=== PATIENT | male | born 1955 | race Caucasian/White ===

== ENCOUNTER 2017-07-23 17:25 | Inpatient (IN) | payer OTHER ==
[~2017-07-23] VITALS: Ht 170.2 cm; Wt 90.7 kg
--- NOTE | 2017-07-23 17:39 | ED GI/GU/ABDOMINAL COMPLAINT ---
History of Present Illness General Chief Complaint: Abdominal Pain/Flank Pain Stated Complaint: LOWER ABD PAIN, X 4 DAYS Source: patient Exam Limitations: no limitations Vital Signs & Intake/Output Vital Signs & Intake/Output Vital Signs Date Time Temp Pulse Resp B/P B/P Pulse O2 O2 Flow FiO2 Mean Ox Delivery Rate 07/23 1916 99.5 77 16 149/69 95 Room Air 07/23 1810 98 Room Air 07/23 1729 99.9 88 18 164/91 97 Room Air Room Air Allergies Coded Allergies: NO KNOWN ALLERGIES (09/17/10) Triage Note: TRIAGE: 62 Y/O FEMALE PRESENTS C/O 12/14 LLQ ABD PAIN SINCE TUESDAY. REPORTS PAIN INTENSE, PREFERS NOT TO SIT IN TRIAGE BENDING EXACERBATES PAIN. TEMP 99.9 IN TRIAGE. Triage Nurses Notes Reviewed? yes Duration: constant Timing: recent history Quality/Severity: sharpness, severe, stabbing Severity Numbers: 7 Radiation: no radiation HPI: Patient is a 62-year-old male with a past medical history of hypertension hyperlipidemia and aortic valve replacement who presents emergency room with concerns of a four-day history of gradually worsening localized left lower quadrant abdominal pain. Patient denies any mechanism injury denies any trauma denies any testicular pain or swelling denies any back pain, change in symptoms upon eating and drinking. Denies any nausea vomiting fever chills chest pain arm pain jaw pain. Last bowel movement was last 24 hours no blood no melena. (Rivas Tony) Reconcile Medications Amlodipine Besylate (Norvasc) 10 MG TABLET 1 TAB PO DAILY HTN (Reported) Aspirin (Aspirin*) 325 MG TABLET 1 TAB PO DAILY HEARTHEALTH (Reported) Diazepam (Valium) 5 MG TABLET 1 TAB PO QPMP PRN VERTIGO (Reported) Evolocumab (Repatha Sureclick) 140 MG/ML PEN.INJCTR 1 DOSE INJ Q 2 WEEKS . ( Reported) Valsartan (Diovan) 320 MG TABLET 1 TAB PO DAILY HTN (Reported) (Rivas Duran) Past History Travel History Traveled to [place] past 21 day No Medical History Any Pertinent Medical History? see below for history Neurological: NONE EENT: NONE Cardiovascular: hypertension, hyperlipidemia, AORTIC VALVE REPLACE 2013 R CORONARY ARTERY STENT Surgical History Surgical History: non-contributory Psychosocial History What is your primary language Czech Tobacco Use: Never used ETOH Use: occasional use Illicit Drug Use: denies illicit drug use Family History Hx Contributory? No (Rivas Tony) Review of Systems Review of Systems Constitutional: Reports: no symptoms. EENTM: Reports: no symptoms. Respiratory: Reports: no symptoms. Cardiovascular: Reports: no symptoms. GI: Reports: see HPI, abdominal pain. Genitourinary: Reports: no symptoms. Musculoskeletal: Reports: no symptoms. Skin: Reports: no symptoms. Neurological/Psychological: Reports: no symptoms. Hematologic/Endocrine: Reports: no symptoms. Immunologic/Allergic: Reports: no symptoms. All Other Systems: Reviewed and Negative (Rivas Tony) Physical Exam Physical Exam General Appearance: mild distress Head: atraumatic Eyes: Bilateral: normal appearance. Ears, Nose, Throat, Mouth: moist mucous membrane Neck: normal inspection Respiratory: no respiratory distress Cardiovascular: regular rate/rhythm Gastrointestinal: normal bowel sounds, soft, LLQ PAIN, NO REBOUND TENDERNESS Neurologic/Psych: no motor/sensory deficits, awake Skin: intact, normal color Core Measures ACS in differential dx? No Sepsis Present: No Sepsis Focused Exam Completed? No (Rivas Tony) Progress Differential Diagnosis: AAA, AMI, appendicitis, biliary colic, bowel obstruction , colon cancer, cholecystitis, diverticulitis, epididymitis, esophageal varices, gastritis, hepatitis, hernia, hemorrhoids, ischemic bowel, inflamm bowel dis, orchitis, pancreatitis, prostatitis, peptic ulcer, PUD/GERD, perforated viscous, pyelonephritis, SBO, testicular torsion, ureterolithiasis, urinary retention, urethritis, UTI/pyelo Plan of Care: Orders Procedure Date/time Status Nothing by Mouth 07/24 B Active CBC WITHOUT DIFFERENTIAL 07/24 0600 Active BASIC ELECTROLYTES PLUS BUN&CR 07/24 06 Active Pathway - chart 07/23 2125 Active Patient Data 07/23 2125 Active Code Status 07/23 2125 Active Misc Message 07/23 2112 Active ED Holding Orders 07/23 2112 Active Admit to inpatient 07/23 2112 Active Vital Signs 07/23 2112 Active Code Status 07/23 2112 Complete BLOOD CULTURE 07/24 2015 Active URINALYSIS 07/23 1745 Complete LACTIC ACID 07/23 1745 Complete COMPREHENSIVE METABOLIC PANEL 07/23 1745 Complete CBC WITHOUT DIFFERENTIAL 07/23 1745 Complete VTE Mechanical Prophylaxis 07/23 UNK Active Vital Signs 07/23 UNK Active Intake & Output 07/23 UNK Active Activity/Ambulation 07/23 UNK Active Current Medications Sig/Cecilia Start time Last Medication Dose Stop Time Status Admin Docusate Sodium 100 MG DAILY 07/24 0900 UNVr (Colace) Ampicillin Sodium/ 3,000 MG Q6 07/23 2359 UNVr Sulbactam Sodium (Unasyn) Sodium Chloride 100 ML (Normal Saline 0.9%) Heparin Sodium 5,000 UNIT Q8 07/23 220 UNVr (Porcine) Acetaminophen 1,000 MG Q6P PRN 07/23 2129 UNVr (Ofirmev) N/A 1 UNIT (No Carrier) Dextrose/Sodium 1,000 ML .Q10H 07/23 2129 UNVr Chloride (D5W-1/2 Normal Saline 1000ML) Morphine Sulfate 2 MG Q3P PRN 07/23 2129 UNVr (Morphine) Morphine Sulfate 4 MG Q3P PRN 07/23 2129 UNVr (Morphine) Ondansetron HCl 4 MG Q8P PRN 07/23 2129 UNVr (Zofran) Laboratory Tests 07/23/172044: Lactic Acid Cancelled 07/23/17 1904: Urine Color YEL, Urine Clarity HAZY H, Urine pH 6.0, Ur Specific [place] 1.020, Urine Protein NEG, Urine Ketones NEG, Urine Nitrite NEG, Urine Bilirubin NEG, Urine Urobilinogen 0.2, Ur Leukocyte Esterase NEG, Ur Microscopic SEDIMENT EXAMINED, Urine RBC 1-3, Urine WBC RARE, Urine Bacteria FEW H, Urine Mucus RARE , Urine Hemoglobin SMALL H, Urine Glucose NEG 07/23/17 1800: Anion Gap 12, Estimated GFR > 60, BUN/Creatinine Ratio 18.9, Glucose 99, Lactic Acid 0.7, Calcium 9.2, Total Bilirubin 0.7, AST 21, ALT 32, Alkaline Phosphatase 77, Total Protein 6.7, Albumin 4.3, Globulin 2.4, Albumin/Globulin Ratio 1.8, CBC w Diff NO MAN DIFF REQ, RBC 5.21, MCV 88.1, MCH 29.8, MCHC 33.8, RDW 14.5, MPV 7.8, Gran % 83.0 H, Lymphocytes % 8.7 L, Monocytes % 6.0, Eosinophils % 1.9, Basophils % 0.4, Absolute Granulocytes 9.7 H, Absolute Lymphocytes 1.0 L, Absolute Monocytes 0.7 H, Absolute Eosinophils 0.2, Absolute Basophils 0 Microbiology 07/23 2049 BLOOD: Blood Culture - RECD 07/24 2039 BLOOD: Blood Culture - RECD Upon initial examination patient was in mild distress patient was given 6 mg of morphine which temporally improved his pain pain then recurred for more milligrams of morphine was GIVEN 1922 patient currently resting comfortably CT SCAN PENDING, DISCUSSED HANDOFF WITH RIVAS WANG PA-C 1944 (Rivas Tony) I discussed with the patient is CAT scan findings, call placed to surgery.Dr. Blankenship in to evaluate patient 2049-Case d/w dr yanes will have surgical paeval pt per michael surgical natalie,clemencia will be admitted to surgical service (Rivas Duran) Initial ED EKG: none Hand-Off Endorsed To: Rivas Duran Endorsed Time: 1944 Pending: CT (Rivas Tony) Diagnostic Imaging: Viewed by Me: CT Scan. Discussed w/RAD: CT Scan. Radiology Impression: PATIENT: CLEMENCIA CLIFFORD PRESENT AGE: 62 PATIENT ACCOUNT NO: [id number] : 55 LOCATION: [facility] ORDERING PHYSICIAN: Rivas CASTANO SERVICE DATE: 07/23/17 EXAM TYPE: CAT - CT ABD & PELVIS W IV CONTRAST EXAMINATION: CT ABDOMEN AND PELVIS WITH CONTRAST CLINICAL INFORMATION: Left lower quadrant pain COMPARISON: CT 10/19/2013 TECHNIQUE: Multidetector volumetric imaging was performed of the abdomen and pelvis following IV administration of 100 mL of Omnipaque 300 intravenous contrast. Sagittal and coronal reformatted images were obtained on the technologist's workstation. DLP: 536 mGy-cm FINDINGS: LUNG BASES: The visualized lung bases are unremarkable. LIVER, GALLBLADDER, AND BILIARY TREE: The liver is normal in size, shape, and attenuation. No focal hepatic lesion or biliary ductal dilatation is present. There is mildly distended. However, there is no wall edema or pericholecystic fluid. PANCREAS: Unremarkable. SPLEEN: Unremarkable. ADRENAL GLANDS: Unremarkable. KIDNEYS AND URETERS: The kidneys are normal in size, shape, and attenuation. No hydronephrosis, hydroureter, or calculi seen. No perinephric stranding. BLADDER: Unremarkable. GASTROINTESTINAL TRACT: There is a large segment of abnormal distal descending and sigmoid: With multiple diverticula and extensive associated inflammatory change. There is an air collection immediately lateral to the distal descending colon measuring 1.4 x 1.3 cm (image 76, series 2). This area is surrounded by dense inflammatory change. There is marked thickening of the lateral conal fascia. There is small amount of free fluid surrounding this long segment of colon as well. The involved segment of colon measures approximately 9 cm in length. Abnormal fluid and inflammatory change tract into the left inguinal canal as well (image 91, series 2) in addition to tracking inferiorly deep within the pelvis. The remainder of the small and large bowel is unremarkable. Normal appendix is visualized in the right lower quadrant. ABDOMINAL WALL: Small right sided fat- containing inguinal hernia. Left inguinal canal inflammatory changes as delineated above. LYMPH NODES: Normal. VASCULAR: Unremarkable. PELVIC VISCERA: Prostate seminal vesicles are unremarkable. OSSEOUS STRUCTURES: Unremarkable. IMPRESSION: Complicated acute sigmoid diverticulitis with contained small abscess and associated free fluid in addition to extensive inflammatory changes in the left lower quadrant. The presumed abscess is not percutaneously drainable based on size criteria (less than 2 cm). Surgical consultation is recommended. DICTATED BY: Madhuri Zacarias MD DATE/TIME DICTATED:07/23/171951 OPERATIONS CLERK :JAKI DATE/TIME TRANSCRIBED:07/23/171951 CONFIDENTIAL, DO NOT COPY WITHOUT APPROPRIATE AUTHORIZATION. <Electronically signed in Other Vendor System> SIGNED BY: Madhuri Zacarias MD 07/23/172002 (Rivas Duran) Comments: 07/23/2017 8:35:00 PM I have updated Clemencia on his test results and he offers no specific complaint at this time. (Pattie MCMANUS,Elia Rogers) Departure Departure Disposition: STILL A PATIENT Condition: Stable Referrals: Cathi Moreland DO (PCP/Family) Departure Forms: Customer Survey General Discharge Information (Rivas Tony) Departure Time of Disposition: 2111 Clinical Impression Primary Impression: Diverticulitis of intestine with abscess Secondary Impressions: Abdominal pain Admission Note Spoke With: Earl MCMANUS,Tamir Gamboa Documentation of Exam: Documentation of any treatments & extenuating circumstances including Concerns Regarding Discharge (functional status, medication knowledge or non-compliance, living conditions, etc.) that warrant an admission rather than observation: [iv abx, trend labsand cultures, premature discharge would be medically harmful, may require IR drainage vs surgery. (Slime CASTANORivas) PA/FINANCIAL SALES CONSULTANT Co-Sign Statement Statement: ED Attending supervision documentation- [x] I saw and evaluated the patient. I have also reviewed all the pertinent lab results and diagnostic results. I agree with the findings and the plan of care as documented in the PA's/FINANCIAL SALES CONSULTANT's documentation. Patient presents for evaluation of lower abdominal pain. Physical examination reveals tenderness in the left lower quadrant with brief voluntary guarding. [] I have reviewed the ED Record and agree with the PA's/FINANCIAL SALES CONSULTANT's documentation. [] Additions or exceptions (if any) to the PAs/FINANCIAL SALES CONSULTANT's note and plan are summarized below: [] (Pattie MCMANUS,Elia Rogers)
[2017-07-23 18:11] LABS: ABSOLUTE BASOPHIL COUNT 0 /CUMM (0.0-0.2); ABSOLUTE EOSINOPHIL COUNT 0.2 /CUMM (0.0-0.7); ABSOLUTE GRANULOCYTE CT 9.7 /CUMM (1.4-6.5); ABSOLUTE MONOCYTE COUNT 0.7 /CUMM (0.10-0.60); BASOPHIL % 0.4 % (0.0-2.0); EOSINOPHIL % 1.9 % (0-5); HEMATOCRIT 45.9 % (42-52); MEAN CORPUSCULAR HGB 29.8 PG (27.0-31.0); MEAN CORPUSCULAR HGB CONC 33.8 G/DL (33.0-37.0); MEAN CORPUSCULAR VOLUME 88.1 FL (80.0-94.0); MEAN PLATELET VOLUME 7.8 FL (7.4-10.4); PLATELET COUNT 245 /CUMM (130-400); RBC DISTRIBUTION WIDTH 14.5 % (11.5-14.5); RED BLOOD CELL CT 5.21 /CUMM (4.70-6.10); WHITE BLOOD CELL COUNT 11.7 /CUMM (4.8-10.8)
--- NOTE | 2017-07-23 20:03 | CT SCAN REPORT ---
EXAMINATION: CT ABDOMEN AND PELVIS WITH CONTRAST CLINICAL INFORMATION: Left lower quadrant pain COMPARISON: CT 10/19/2013 TECHNIQUE: Multidetector volumetric imaging was performed of the abdomen and pelvis following IV administration of 100 mL of Omnipaque 300 intravenous contrast. Sagittal and coronal reformatted images were obtained on the technologist's workstation. DLP: 536 mGy-cm FINDINGS: LUNG BASES: The visualized lung bases are unremarkable. LIVER, GALLBLADDER, AND BILIARY TREE: The liver is normal in size, shape, and attenuation. No focal hepatic lesion or biliary ductal dilatation is present. There is mildly distended. However, there is no wall edema or pericholecystic fluid. PANCREAS: Unremarkable. SPLEEN: Unremarkable. ADRENAL GLANDS: Unremarkable. KIDNEYS AND URETERS: The kidneys are normal in size, shape, and attenuation. No hydronephrosis, hydroureter, or calculi seen. No perinephric stranding. BLADDER: Unremarkable. GASTROINTESTINAL TRACT: There is a large segment of abnormal distal descending and sigmoid: With multiple diverticula and extensive associated inflammatory change. There is an air collection immediately lateral to the distal descending colon measuring 1.4 x 1.3 cm (image 76, series 2). This area is surrounded by dense inflammatory change. There is marked thickening of the lateral conal fascia. There is small amount of free fluid surrounding this long segment of colon as well. The involved segment of colon measures approximately 9 cm in length. Abnormal fluid and inflammatory change tract into the left inguinal canal as well (image 91, series 2) in addition to tracking inferiorly deep within the pelvis. The remainder of the small and large bowel is unremarkable. Normal appendix is visualized in the right lower quadrant. ABDOMINAL WALL: Small right sided fat-containing inguinal hernia. Left inguinal canal inflammatory changes as delineated above. LYMPH NODES: Normal. VASCULAR: Unremarkable. PELVIC VISCERA: Prostate seminal vesicles are unremarkable. OSSEOUS STRUCTURES: Unremarkable. IMPRESSION: Complicated acute sigmoid diverticulitis with contained small abscess and associated free fluid in addition to extensive inflammatory changes in the left lower quadrant. The presumed abscess is not percutaneously drainable based on size criteria (less than 2 cm). Surgical consultation is recommended.
[2017-07-23] MEDS ORDERED: NORVASC10 M1 PO (20:35)
[2017-07-23] MEDS ORDERED: DIOVAN320 M1 PO (20:35)
[2017-07-23] MEDS ORDERED: ASPIRIN325 M2 PO (20:35)
[2017-07-23] MEDS ORDERED: REPATHA SU140 MG/1 M INJ (20:36)
[2017-07-23] MEDS ORDERED: VALIUM5 M2 PO (20:36)
--- NOTE | 2017-07-23 21:41 | History & Physical Pre-Op ---
AlisKathrin 07/23/172129: General Information and HPI MD Statement: I have seen and personally examined CLEMENCIA CLIFFORD and documented this H&P. Source of Information: patient, family Exam Limitations: no limitations History of Present Illness: The patient is a 62 year old M who presented with a patient stated chief complaint of []left lower quadrant abdominal pain that started 3 days ago. Patient states he thought he pulled a muscle while working outside. He had vague abdominal pain that worsened over the last few days. Today the discomfort worsened along with anorexia. He denies nausea or vomiting. He ate a full lunch without incident. Small BM earlier today that was normal appearing without blood. Allergies/Medications Allergies: Coded Allergies: NO KNOWN ALLERGIES (09/17/10) Home Med list Amlodipine Besylate (Norvasc) 10 MG TABLET 1 TAB PO DAILY HTN (Reported) Aspirin (Aspirin*) 325 MG TABLET 1 TAB PO DAILY HEARTHEALTH (Reported) Diazepam (Valium) 5 MG TABLET 1 TAB PO QPMP PRN VERTIGO (Reported) Evolocumab (Repatha Sureclick) 140 MG/ML PEN.INJCTR 1 DOSE INJ Q 2 WEEKS . ( Reported) Valsartan (Diovan) 320 MG TABLET 1 TAB PO DAILY HTN (Reported) Compliance With Home Meds: GOOD Past History Medical History Neurological: NONE EENT: NONE Cardiovascular: hypertension, hyperlipidemia, AORTIC VALVE REPLACE 2012 R CORONARY ARTERY STENT, cardiac stent Surgical History Pertinent Surgical History: non-contributory Past Family/Social History Psychosocial History ETOH Use: occasional use Illicit Drug Use: denies illicit drug use Review of Systems Review of Systems Constitutional: Denies: chills, fever, malaise, weakness. EENTM: Denies: no symptoms. Cardiovascular: Denies: chest pain, edema, palpitations. Respiratory: Denies: cough, short of breath. GI: Reports: abdominal pain, bloating. Denies: constipation, diarrhea, melena, nausea, bloody stool, vomiting. Genitourinary: Denies: no symptoms. Musculoskeletal: Denies: no symptoms. Skin: Denies: no symptoms. Neurological/Psychological: Reports: other (vertigo). Hematologic/Endocrine: Denies: no symptoms. Exam & Diagnostic Data Last 24 Hrs of Vital Signs/I&O Vital Signs Date Time Temp Pulse Resp B/P B/P Pulse O2 O2 Flow FiO2 Mean Ox Delivery Rate 07/23 1916 99.5 77 16 149/69 95 Room Air 07/23 1810 98 Room Air 07/23 1729 99.9 88 18 164/91 97 Room Air Room Air Physical Exam: Patient is alert and oriented lying on stetcher. is present. appears comfortable HEENT -WNL Neck - Supple, NT AROM Chest- CTA symmetric heart -RRR without MRG Abdomen - rounded with mild distention TTP LLQ with guarding, pos BS bilateral lower extremities without edema and calves soft CT scan of abdomen impression Complicated acute sigmoid diverticulitis with contained small abscess and associated free fluid in addition to extensive inflammatory changes in the left lower quadrant. The presumed abscess is not percutaneously drainable based on size criteria (less than 2 cm). Surgical consultation is recommended. Admission Lab Results I reviewed the following labs: Laboratory Tests 07/23 Chemistry Lactic Acid Cancelled Urines Urine Color (YEL,AMB,STR) YEL Urine Clarity (CLEAR) HAZY H Urine pH (5.0 - 8.0) 6.0 Ur Specific [place] (1.001 - 1.035) 1.020 Urine Protein (NEG,<30 MG/DL) NEG Urine Ketones (NEG) NEG Urine Nitrite (NEG) NEG Urine Bilirubin (NEG) NEG Urine Urobilinogen (0.1 - 1.0 EU/dl) 0.2 Ur Leukocyte Esterase (NEG) NEG Ur Microscopic SEDIMENT EXAMINED Urine RBC (0 - 5 /HPF) 1-3 Urine WBC (0 - 2 /HPF) RARE Urine Bacteria (NEG/NONE) FEW H Urine Mucus (FEW,NONE) RARE Urine Hemoglobin (NEG) SMALL H Urine Glucose (N MG/DL) NEG 07/23 1800 Chemistry Sodium (137 - 145 mmol/L) 141 Potassium (3.5 - 5.1 mmol/L) 4.0 Chloride (98 - 107 mmol/L) 104 Carbon Dioxide (22 - 30 mmol/L) 25 Anion Gap (5 - 16) 12 BUN (9 - 20 mg/dL) 17 Creatinine (0.7 - 1.2 mg/dL) 0.9 Estimated GFR (>60 ml/min) > 60 BUN/Creatinine Ratio (7 - 25 %) 18.9 Glucose (65 - 99 mg/dL) 99 Lactic Acid (0.7 - 2.1 mmol/L) 0.7 Calcium (8.4 - 10.2 mg/dL) 9.2 Total Bilirubin (0.2 - 1.3 mg/dL) 0.7 AST (17 - 59 U/L) 21 ALT (21 - 72 U/L) 32 Alkaline Phosphatase (< 127 U/L) 77 Total Protein (6.3 - 8.2 g/dL) 6.7 Albumin (3.5 - 5.0 g/dL) 4.3 Globulin (1.9 - 4.2 gm/dL) 2.4 Albumin/Globulin Ratio (1.1 - 2.2 %) 1.8 Hematology CBC w Diff NO MAN DIFF REQ WBC (4.8 - 10.8 /CUMM) 11.7 H RBC (4.70 - 6.10 /CUMM) 5.21 Hgb (14.0 - 18.0 G/DL) 15.5 Hct (42 - 52 %) 45.9 MCV (80.0 - 94.0 FL) 88.1 MCH (27.0 - 31.0 PG) 29.8 MCHC (33.0 - 37.0 G/DL) 33.8 RDW (11.5 - 14.5 %) 14.5 Plt Count (130 - 400 /CUMM) 245 MPV (7.4 - 10.4 FL) 7.8 Gran % (42.2 - 75.2 %) 83.0 H Lymphocytes % (20.5 - 51.1 %) 8.7 L Monocytes % (1.7 - 9.3 %) 6.0 Eosinophils % (0 - 5 %) 1.9 Basophils % (0.0 - 2.0 %) 0.4 Absolute Granulocytes (1.4 - 6.5 /CUMM) 9.7 H Absolute Lymphocytes (1.2 - 3.4 /CUMM) 1.0 L Absolute Monocytes (0.10 - 0.60 /CUMM) 0.7 H Absolute Eosinophils (0.0 - 0.7 /CUMM) 0.2 Absolute Basophils (0.0 - 0.2 /CUMM) 0 Admission Meds I reviewed the following Meds: Current Medications Sig/Cecilia Start time Last Medication Dose Stop Time Status Admin Acetaminophen 1,000 MG Q6P PRN 07/230 UNVr (Ofirmev) N/A 1 UNIT (No Carrier) Ampicillin Sodium/ 3,000 MG Q6 07/23 2359 UNVr Sulbactam Sodium (Unasyn) Sodium Chloride 100 ML (Normal Saline 0.9%) Dextrose/Sodium 1,000 ML .Q10H 07/23 2130 UNVr Chloride (D5W-1/2 Normal Saline 1000ML) Docusate Sodium 100 MG DAILY 07/24 0900 UNVr (Colace) Heparin Sodium 5,000 UNIT Q8 07/23 2200 UNVr (Porcine) Morphine Sulfate 2 MG Q3P PRN 07/23 2129 UNVr (Morphine) Morphine Sulfate 4 MG Q3P PRN 07/23 2129 UNVr (Morphine) Ondansetron HCl 4 MG Q8P PRN 07/23 2129 UNVr (Zofran) Assessment/Plan Assessment/Plan: acute sigmoid diverticulitis Admit to Dr. Elliott for bowel rest and IV unasyn. He will be NPO and reascessed in the AM. HSQ for DVT prophalaxis and ALPS OOB to stretcher chair As Ranked By This Provider Problem List: 1. Diverticulitis of intestine with abscess Tamir Elliott MD 07/24/17 1040: Attending MD Review Statement Attending Statement Attending MD Statement: discuss w/resident/PA/PATIENT CARE, reviewed images Attending Assessment/Plan: PATIENT PRESENTS WITH WAS PRESUMED TO BE A MUSCULOSKELETAL INJURY WITH LEFT LLQ/ INGUINAL PAIN. WORSENED REQUIRING EVALUATION IN ER. PATIENT HAS FOCAL LLQ PERITONITIS. CT SHOWS INFLAMMATORY CHANGES TO SIGMOID COLON C/W DIVERTICULITIS. PATIENT HAS PRIOR COLONOSCOPY WITHOUT SIGNIFICANT FINDINGS 2 YEARS AGO. PLAN FOR BOWEL REST AND IV BROAD SPECTRUM ABX. SERIAL ABDOMINAL EXAMINATION. IMAGES VIEWED. "SMALL ABSCESS" IS OF NO CONSEQUENCE. TOO SMALL TO CHARACTERIZE AND TOO SMALL FOR PERCUTANEOUS DRAINAGE. IT WILL BE MANAGED WITHOUT INTERVENTION.
--- NOTE | 2017-07-23 21:53 | Patient Discharge Instructions ---
Discharge Instructions General Discharge Information You were seen/treated for: Diverticulitis with abscess You had these procedures: None Watch for these problems: Increased pain, nausea, vomiting, fever > 101.3, chills Special Instructions: Please complete 7 day course of Augmentin. Take with food. Diet Continue normal diet: No Recommended Diet: Low Residue Activity Full Activity/No Limits: Yes Acute Coronary Syndrome Inclusion Criteria At DC or during hospital stay patient has or had the following: ACS DIAGNOSIS No Discharge Core Measures Meds if any: Prescribed or Continued at Discharge Meds if any: NOT Prescribed or Continued at Discharge Congestive Heart Failure Inclusion Criteria At DC or during hospital stay patient has or had the following: CHF DIAGNOSIS No Discharge Core Measures Meds if any: Prescribed or Continued at Discharge Meds if any: NOT Prescribed or Continued at Discharge Cerebrovascular accident Inclusion Criteria At DC or during hospital stay patient has or had the following: CVA/TIA Diagnosis No Discharge Core Measures Meds if any: Prescribed or Continued at Discharge Meds if any: NOT Prescribed or Continued at Discharge Venous thromboembolism Inclusion Criteria VTE Diagnosis No VTE Type NONE VTE Confirmed by (Test) NONE Discharge Core Measures - Per Current guidelines, there needs to be overlap - treatment for the first 5 days of Warfarin therapy. - If discharged on Warfarin prior to 5 days of - overlap therapy, the patient will need to be - assessed for post discharge needs including - *Post discharge parental anticoagulation - *Warfarin and/or parental anticoagulation education - *Follow up date to check INR post discharge At least 5 days overlap therapy as Inpatient No Meds if any: Prescribed or Continued at Discharge Note: Overlap Therapy is Warfarin and Anticoagulant Meds if any: NOT Prescribed or Continued at Discharge
[2017-07-23 22:43] VITALS: BP 120/68
[2017-07-24 06:57] VITALS: BP 114/71
--- NOTE | 2017-07-24 08:28 | PN- General Surgery ---
See Addendum Subjective Subjective: PT IN BED, STILL WITH MOD LOWER LEFT ABDOMINAL PAIN. DENIES FEVERS. NO NAUSEA, CURRENTLY NPO. PASSING FLATUS, NO BM. DENIES DYSUREA. Objective Vital Signs and I&Os Vital Signs Date Time Temp Pulse Resp B/P B/P Pulse O2 O2 Flow FiO2 Mean Ox Delivery Rate 07/24 0744 66 112/70 07/24 0743 66 112/70 07/24 0657 97.9 66 18 114/71 94 Room Air 07/23 2243 98.6 69 18 120/68 94 Room Air 07/23 2152 98.9 72 20 129/69 93 Room Air 07/23 1917 99.5 77 16 149/69 95 Room Air 07/23 1810 98 Room Air 07/23 1729 99.9 88 18 164/91 97 Room Air Room Air Intake & Output 07/24 1600 07/24 0800 07/24 0000 07/23 1600 07/23 0800 07/23 0000 Intake Total 1000 Output Total 450 300 Balance 550 -300 Intake, IV 1000 Output, Urine 450 300 Patient 200 lb Weight Weight Reported by Patient Measurement Method Physical Exam: GEN- NAD RESP- CLEAR CARDIAC- RRR ABD- SOFT, +BS, TENDER IN LLQ, NO REBOUND OR GAURDING EXT- WARM AND DRY, NO EDEMA, NO CALF TENDERNESS Current Medications: Current Medications Sig/Cecilia Start time Last Medication Dose Route Stop Time Status Admin Acetaminophen 1,000 MG Q6P PRN 07/23 2129 AC N/A 1 UNIT IV Amlodipine Besylate 10 MG DAILY 07/24 0900 AC 07/24 PO 0743 Ampicillin Sodium/ 3,000 MG Q6 07/23 2359 AC 07/24 Sulbactam Sodium IV 0501 Sodium Chloride 100 ML Ampicillin Sodium/ 0 .STK-MED ONE 07/23 2046 DC Sulbactam Sodium .ROUTE Ampicillin Sodium/ 3,000 MG ONCE ONE 07/23 2029 DC 07/23 Sulbactam Sodium IV 07/23 Sodium Chloride 100 ML Dextrose/Sodium 1,000 ML .Q10H 07/23 2129 AC 07/23 Chloride IV 2151 Diazepam 5 MG QPM PRN 07/23 2199 AC PO Docusate Sodium 100 MG DAILY 07/24 0900 AC 07/24 PO 0744 Heparin Sodium 5,000 UNIT Q8 05/19 2200 AC (Porcine) SC Ketorolac 0 .STK-MED ONE 07/23 2045 DC Tromethamine .ROUTE Ketorolac 30 MG ONCE ONE 07/23 2030 DC 07/23 Tromethamine IV 07/23 Losartan Potassium 100 MG DAILY 07/24 0900 AC 07/24 PO 0744 Morphine Sulfate 2 MG Q3P PRN 07/230 AC 07/24 IV 0744 Morphine Sulfate 4 MG Q3P PRN 07/23 2129 AC IV Morphine Sulfate 0 .STK-MED ONE 07/23 2046 DC .ROUTE Morphine Sulfate 2 MG ONCE ONE 07/23 2030 DC 07/23 IV 07/23 Morphine Sulfate 4 MG ONCE ONE 07/23 191 DC 07/23 IV 07/23 Morphine Sulfate 0 .STK-MED ONE 07/23 1910 DC .ROUTE Morphine Sulfate 0 .STK-MED ONE 07/23 1758 DC .ROUTE Morphine Sulfate 6 MG ONCE ONE 07/23 1745 DC 07/23 IV 07/23 174 1800 Ondansetron HCl 4 MG Q8P PRN 07/23 2129 AC 07/24 IV 0306 Results Last 48 Hours of Labs: Laboratory Tests 07/24 07/23 07/23 0637 2045 1904 Chemistry Sodium Pending Potassium Pending Chloride Pending Carbon Dioxide Pending Anion Gap Pending BUN Pending Creatinine Pending BUN/Creatinine Ratio Pending Lactic Acid Cancelled Hematology CBC w Diff Pending WBC Pending RBC Pending Hgb Pending Hct Pending MCV Pending MCH Pending MCHC Pending RDW Pending Plt Count Pending MPV Pending Urines Urine Color (YEL,AMB,STR) YEL Urine Clarity (CLEAR) HAZY H Urine pH (5.0 - 8.0) 6.0 Ur Specific [place] (1.001 - 1.035) 1.020 Urine Protein (NEG,<30 MG/DL) NEG Urine Ketones (NEG) NEG Urine Nitrite (NEG) NEG Urine Bilirubin (NEG) NEG Urine Urobilinogen (0.1 - 1.0 EU/dl) 0.2 Ur Leukocyte Esterase (NEG) NEG Ur Microscopic SEDIMENT EXAMINED Urine RBC (0 - 5 /HPF) 1-3 Urine WBC (0 - 2 /HPF) RARE Urine Bacteria (NEG/NONE) FEW H Urine Mucus (FEW,NONE) RARE Urine Hemoglobin (NEG) SMALL H Urine Glucose (N MG/DL) NEG 07/23 1800 Chemistry Sodium (137 - 145 mmol/L) 141 Potassium (3.5 - 5.1 mmol/L) 4.0 Chloride (98 - 107 mmol/L) 104 Carbon Dioxide (22 - 30 mmol/L) 25 Anion Gap (5 - 16) 12 BUN (9 - 20 mg/dL) 17 Creatinine (0.7 - 1.2 mg/dL) 0.9 Estimated GFR (>60 ml/min) > 60 BUN/Creatinine Ratio (7 - 25 %) 18.9 Glucose (65 - 99 mg/dL) 99 Lactic Acid (0.7 - 2.1 mmol/L) 0.7 Calcium (8.4 - 10.2 mg/dL) 9.2 Total Bilirubin (0.2 - 1.3 mg/dL) 0.7 AST (17 - 59 U/L) 21 ALT (21 - 72 U/L) 32 Alkaline Phosphatase (< 127 U/L) 77 Total Protein (6.3 - 8.2 g/dL) 6.7 Albumin (3.5 - 5.0 g/dL) 4.3 Globulin (1.9 - 4.2 gm/dL) 2.4 Albumin/Globulin Ratio (1.1 - 2.2 %) 1.8 Hematology CBC w Diff NO MAN DIFF REQ WBC (4.8 - 10.8 /CUMM) 11.7 H RBC (4.70 - 6.10 /CUMM) 5.21 Hgb (14.0 - 18.0 G/DL) 15.5 Hct (42 - 52 %) 45.9 MCV (80.0 - 94.0 FL) 88.1 MCH (27.0 - 31.0 PG) 29.8 MCHC (33.0 - 37.0 G/DL) 33.8 RDW (11.5 - 14.5 %) 14.5 Plt Count (130 - 400 /CUMM) 245 MPV (7.4 - 10.4 FL) 7.8 Gran % (42.2 - 75.2 %) 83.0 H Lymphocytes % (20.5 - 51.1 %) 8.7 L Monocytes % (1.7 - 9.3 %) 6.0 Eosinophils % (0 - 5 %) 1.9 Basophils % (0.0 - 2.0 %) 0.4 Absolute Granulocytes (1.4 - 6.5 /CUMM) 9.7 H Absolute Lymphocytes (1.2 - 3.4 /CUMM) 1.0 L Absolute Monocytes (0.10 - 0.60 /CUMM) 0.7 H Absolute Eosinophils (0.0 - 0.7 /CUMM) 0.2 Absolute Basophils (0.0 - 0.2 /CUMM) 0 Assessment/Plan Assessment/Plan 62YO M WITH SIGMOID DIVERTICULTIS. STABLE CONT IV ABX- UNASYN CONT NPO ENCOURAGE AMBULATION DVT PPX- HSQ PAIN MANAGEMENT Core Measures Venous Thromboembolism VTE Risk Factors Acute Medical Illness No Mechanical VTE Prophylaxis d/t N/A MechProphylax Ordered No VTE Pharm Prophylaxis d/t NA PharmProphylax ordered
--- NOTE | 2017-07-24 08:28 | Admission Core Measures ---
Acute Coronary Syndrome (CM) ACS Core Measures Acute Coronary Syndrome Diagnosis No Congestive Heart Failure (NEW) CHF Core Measures Congestive Heart Failure Diagnosis No Cerebrovascular Accident (NEW) CVA Core Measures CVA/TIA Diagnosis No Venous Thromboembolism VTE Core Parveen (View Protocol) VTE Risk Factors Acute Medical Illness No Mechanical VTE Prophylaxis d/t N/A MechProphylax Ordered No VTE Pharm Prophylaxis d/t NA PharmProphylax ordered Problem List As ranked by this Provider includes Assessment & Plan 1. Diverticulitis of intestine with abscess HOME MEDS Home Med List Amlodipine Besylate (Norvasc) 10 MG TABLET 1 TAB PO DAILY HTN (Reported) Aspirin (Aspirin*) 325 MG TABLET 1 TAB PO DAILY HEARTHEALTH (Reported) Diazepam (Valium) 5 MG TABLET 1 TAB PO QPMP PRN VERTIGO (Reported) Evolocumab (Repatha Sureclick) 140 MG/ML PEN.INJCTR 1 DOSE INJ Q 2 WEEKS . ( Reported) Valsartan (Diovan) 320 MG TABLET 1 TAB PO DAILY HTN (Reported)
[2017-07-24 08:40] LABS: ABSOLUTE BASOPHIL COUNT 0 /CUMM (0.0-0.2); ABSOLUTE EOSINOPHIL COUNT 0.1 /CUMM (0.0-0.7); ABSOLUTE GRANULOCYTE CT 10.3 /CUMM (1.4-6.5); ABSOLUTE LYMPH COUNT 0.8 /CUMM (1.2-3.4); ABSOLUTE MONOCYTE COUNT 0.7 /CUMM (0.10-0.60); BASOPHIL % 0 % (0.0-2.0); EOSINOPHIL % 0.9 % (0-5); HEMATOCRIT 41.6 % (42-52); MEAN CORPUSCULAR HGB CONC 33.8 G/DL (33.0-37.0); MEAN CORPUSCULAR VOLUME 88.6 FL (80.0-94.0); MEAN PLATELET VOLUME 8.4 FL (7.4-10.4); PLATELET COUNT 217 /CUMM (130-400); RBC DISTRIBUTION WIDTH 14.9 % (11.5-14.5); RED BLOOD CELL CT 4.69 /CUMM (4.70-6.10); WHITE BLOOD CELL COUNT 11.8 /CUMM (4.8-10.8)
[2017-07-24 14:33] VITALS: BP 130/58
[2017-07-24 21:57] VITALS: BP 120/70
[2017-07-25 06:32] VITALS: BP 130/76
--- NOTE | 2017-07-25 07:39 | PN- General Surgery ---
See Addendum Subjective Subjective: No acute overnight events reported. 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 Pt with reported improvement in mobility, able to sit up and move around without discomfort. Has been tolerating clear liquid diet. Had one episode only of nausea during hospital stay, resolved. Has been passing flatus, no bm. Has been voiding. Denies malaise, fever, and flu like illness. Denies chest pain, shortness of breath and difficulty breathing. Objective Vital Signs and I&Os Vital Signs Date Time Temp Pulse Resp B/P B/P Pulse O2 O2 Flow FiO2 Mean Ox Delivery Rate 07/25 0632 98.5 59 18 130/76 96 Room Air 07/24 2157 99.6 64 20 120/70 94 Room Air 07/24 1433 99.2 66 18 130/58 94 07/24 0744 66 112/70 07/24 0743 66 112/70 Intake & Output 07/25 0800 07/25 0000 07/24 1600 07/24 0800 07/24 0000 07/23 1600 Intake Total 863 812 5826 1000 Output Total 450 300 Balance 114 278 7354 550 -300 Intake, IV 959 060 9580 Intake, Oral 120 500 500 Output, Urine 450 300 Patient 200 lb 200 lb Weight Weight Reported by Patient Reported by Patient Measurement Method Physical Exam: General: Alert and oriented x3, no acute distress Cardiac: RRR, s1s2 Pulm: CTA, non-labored respiratory effort Abdomen: Soft, minimal distension, no massess or hepatosplenomegaly palpated. Tenderness without guarding with direct palpation to LLQ, mild tenderness in LLQ reported with palpation of epigastric region, although did not appear grossly peritonitic Extremities: Moves all extremities, distal sensation grossly intact. Skin warm and well perfused. DP pulses palpable, bilateral calves soft and non-tender. Assessment/Plan Assessment/Plan 62 year old male, hospital day 2 with diverticulitis and small abscess, currently undergoing conservative management including bowel rest and iv abx -Continue clear liquid diet today, will consider advancing when less tender -Watch for worsening signs of peritonitis, will consider reimaging if clinical condition deteriorates -Continue IV unasyn -Follow up am labs, replete elytes as needed -Continue sub q hep for dvt ppx -Continue oob Will discuss poc with Dr. Elliott Core Measures Venous Thromboembolism VTE Risk Factors Acute Medical Illness No Mechanical VTE Prophylaxis d/t N/A MechProphylax Ordered No VTE Pharm Prophylaxis d/t NA PharmProphylax ordered
[2017-07-25 08:14] LABS: ABSOLUTE BASOPHIL COUNT 0 /CUMM (0.0-0.2); ABSOLUTE EOSINOPHIL COUNT 0.3 /CUMM (0.0-0.7); ABSOLUTE GRANULOCYTE CT 7.4 /CUMM (1.4-6.5); ABSOLUTE MONOCYTE COUNT 0.5 /CUMM (0.10-0.60); BASOPHIL % 0 % (0.0-2.0); EOSINOPHIL % 2.9 % (0-5); GRANULOCYTE % 81.5 % (42.2-75.2); MEAN CORPUSCULAR HGB 30.1 PG (27.0-31.0); MEAN CORPUSCULAR HGB CONC 34.2 G/DL (33.0-37.0); MEAN CORPUSCULAR VOLUME 87.9 FL (80.0-94.0); MEAN PLATELET VOLUME 8.3 FL (7.4-10.4); PLATELET COUNT 213 /CUMM (130-400); RBC DISTRIBUTION WIDTH 14.9 % (11.5-14.5); RED BLOOD CELL CT 4.67 /CUMM (4.70-6.10); WHITE BLOOD CELL COUNT 9.1 /CUMM (4.8-10.8)
[2017-07-25 15:06] VITALS: BP 120/70
[2017-07-25 23:25] VITALS: BP 137/74
[2017-07-26 07:18] VITALS: BP 141/83
--- NOTE | 2017-07-26 07:48 | PN- General Surgery ---
See Addendum Subjective Subjective: Reports pain resolved, did not require any pain meds yesterday. Tolerating fulls without any nausea or vomiting. Ambulating without difficulty. Reports having a normal BM this morning. Reports voiding frequently. Eager to have his diet advanced. Denies fever, chills, chest pain or shortness of breath. Objective Vital Signs and I&Os Vital Signs Date Time Temp Pulse Resp B/P B/P Pulse O2 O2 Flow FiO2 Mean Ox Delivery Rate 07/26 0718 98.8 53 20 141/83 98 Room Air 07/25 2325 98.8 59 18 137/74 98 Room Air 07/25 1506 98.1 61 20 120/70 95 Room Air 07/25 09 65 120/64 07/25 09 65 120/64 Intake & Output 07/26 0807/26 0000 07/25 1600 07/25 0807/25 0000 07/24 1600 Intake Total 054 613 4586 201 011 8728 Output Total 600 Balance 400 760 400 648 145 1743 Intake, IV 400 400 400 400 600 Intake, Oral 360 600 120 500 500 Number 1 Bowel Movements Output, Urine 600 Patient 200 lb Weight Weight Reported by Patient Measurement Method Physical Exam: Genera - resting comfortably nad Cardiac - S1S2 Lungs - CTAB Abdomen - Soft, nondistended, mild tenderness to deep palpation in LLQ otherwise nontender throughout, no rebound or guarding Ext - no edema or calf tenderness Current Medications: Current Medications Sig/Cecilia Start time Last Medication Dose Route Stop Time Status Admin Acetaminophen 1,000 MG Q6P PRN 07/23 2129 AC N/A 1 UNIT IV Amlodipine Besylate 10 MG DAILY 07/24 899 AC 07/25 PO 912 Ampicillin Sodium/ 3,000 MG Q6 07/23 2359 AC 07/26 Sulbactam Sodium IV 05 Sodium Chloride 100 ML Dextrose/Sodium 1,000 ML .Q20H 07/23 2129 AC 07/25 Chloride IV 1723 Diazepam 5 MG QPM PRN 07/23 2199 AC PO Docusate Sodium 100 MG DAILY 07/24 899 AC 07/25 PO 0912 Heparin Sodium 5,000 UNIT Q8 07/23 2199 AC (Porcine) SC Losartan Potassium 100 MG DAILY 07/24 899 AC 07/25 PO 09 Morphine Sulfate 2 MG Q3P PRN 07/23 2129 AC 07/24 IV 0744 Morphine Sulfate 4 MG Q3P PRN 07/23 2129 AC IV Ondansetron HCl 4 MG Q8P PRN 07/23 2129 AC 07/24 IV 0306 Patient Medication 1 ED ONE ONE 07/25 1400 DC [facility] ED 07/25 1401 Results Last 48 Hours of Labs: Laboratory Tests 07/25 0715 Chemistry Sodium (137 - 145 mmol/L) 139 Potassium (3.5 - 5.1 mmol/L) 4.4 Chloride (98 - 107 mmol/L) 105 Carbon Dioxide (22 - 30 mmol/L) 26 Anion Gap (5 - 16) 8 BUN (9 - 20 mg/dL) 12 Creatinine (0.7 - 1.2 mg/dL) 0.8 Estimated GFR (>60 ml/min) > 60 BUN/Creatinine Ratio (7 - 25 %) 15.0 Hematology CBC w Diff NO MAN DIFF REQ WBC (4.8 - 10.8 /CUMM) 9.1 RBC (4.70 - 6.10 /CUMM) 4.67 L Hgb (14.0 - 18.0 G/DL) 14.0 Hct (42 - 52 %) 41.0 L MCV (80.0 - 94.0 FL) 87.9 MCH (27.0 - 31.0 PG) 30.1 MCHC (33.0 - 37.0 G/DL) 34.2 RDW (11.5 - 14.5 %) 14.9 H Plt Count (130 - 400 /CUMM) 213 MPV (7.4 - 10.4 FL) 8.3 Gran % (42.2 - 75.2 %) 81.5 H Lymphocytes % (20.5 - 51.1 %) 10.6 L Monocytes % (1.7 - 9.3 %) 5.0 Eosinophils % (0 - 5 %) 2.9 Basophils % (0.0 - 2.0 %) 0 Absolute Granulocytes (1.4 - 6.5 /CUMM) 7.4 H Absolute Lymphocytes (1.2 - 3.4 /CUMM) 1.0 L Absolute Monocytes (0.10 - 0.60 /CUMM) 0.5 Absolute Eosinophils (0.0 - 0.7 /CUMM) 0.3 Absolute Basophils (0.0 - 0.2 /CUMM) 0 Assessment/Plan Assessment/Plan 62 M admitted with diverticulitis and small abscess, resolving with conservative management Advance to low residue diet D/c IVF Cont IV Unasyn Follow up labs DVT ppx - hsq OOB ambulation Anticipate d/c home today Transition to oral abx upon d/c Will d/w Dr. Elliott Core Measures Venous Thromboembolism VTE Risk Factors Acute Medical Illness No Mechanical VTE Prophylaxis d/t N/A MechProphylax Ordered No VTE Pharm Prophylaxis d/t NA PharmProphylax ordered
[2017-07-26 08:46] LABS: ABSOLUTE BASOPHIL COUNT 0 /CUMM (0.0-0.2); ABSOLUTE EOSINOPHIL COUNT 0.4 /CUMM (0.0-0.7); ABSOLUTE GRANULOCYTE CT 4.9 /CUMM (1.4-6.5); ABSOLUTE LYMPH COUNT 0.9 /CUMM (1.2-3.4); ABSOLUTE MONOCYTE COUNT 0.4 /CUMM (0.10-0.60); BASOPHIL % 0.2 % (0.0-2.0); EOSINOPHIL % 6.1 % (0-5); GRANULOCYTE % 73.9 % (42.2-75.2); HEMATOCRIT 43.6 % (42-52); MEAN CORPUSCULAR HGB 29.9 PG (27.0-31.0); MEAN CORPUSCULAR HGB CONC 33.6 G/DL (33.0-37.0); MEAN CORPUSCULAR VOLUME 88.9 FL (80.0-94.0); MEAN PLATELET VOLUME 8.2 FL (7.4-10.4); PLATELET COUNT 245 /CUMM (130-400); RBC DISTRIBUTION WIDTH 14.2 % (11.5-14.5); WHITE BLOOD CELL COUNT 6.6 /CUMM (4.8-10.8)
[2017-07-26 10:19] VITALS: BP 118/70
[2017-07-26] MEDS ORDERED: AUGMENTIN 875-1 EACH PO (11:54)
--- NOTE | 2017-07-26 15:32 | Surgical Discharge Summary ---
Visit Information Visit Dates Admission Date: 07/23/17 Discharge Date: 07/26/17 History of Present Illness Chief Complaint: abdominal pain Medical History Blood Transfusion Hx: Yes Neurological: NONE EENT: NONE Cardiovascular: hypertension, hyperlipidemia, AORTIC VALVE REPLACE 2013 R CORONARY ARTERY STENT cardiac stent Respiratory: NONE Gastrointestinal: NONE Hepatic: NONE Renal: NONE Musculoskeletal: NONE Psychiatric: NONE Endocrine: NONE Blood Disorders: NONE Cancer(s): NONE SOLUTION LEAD/Reproductive: NONE History of MRSA: No History of VRE: No History of CDIFF: No Isolation History: Standard Surgical History Pertinent Surgical History: non-contributory Psychosocial History Where Do You Live? Home Who Do You Live With? Significant Other Services at Home: None What is Your Primary Language? Yi ETOH Use: occasional use Review of Systems: see preop hp Hospital Course Course Attending Physician: Tamir Elliott MD Primary Care Physician: Cathi Moreland DO [facility] Course: Patient is admitted to the surgical service for treatment, medical of acute diverticulitis with microperforation. He responded well to IV antibiotics and bowel rest with resolution of his leukocytosis and abdominal pain. He was subsequently started on a diet and advance to regular prior to being discharged home Allergies: Coded Allergies: NO KNOWN ALLERGIES (09/17/10) Disposition Summary Disposition Principal Diagnosis: Acute diverticulitis Additional Diagnosis: none Discharge Disposition: home or self care Discharge Instructions General Discharge Information Code Status: Full Code Patient's Diet: regular low residual Patient's Activity: ad maynor Follow-Up Instructions/Appts: two weeks Medications at Discharge Discharge Medications: Continue taking these medications: Aspirin (Aspirin*) 325 MG TABLET 1 Tablet ORAL DAILY Valsartan (Diovan) 320 MG TABLET 1 Tablet ORAL DAILY Amlodipine Besylate (Norvasc) 10 MG TABLET 1 Tablet ORAL DAILY Comments: LAST GIVEN 07/26/17 @ 1015 Diazepam (Valium) 5 MG TABLET 1 Tablet ORAL Every night as needed as needed for VERTIGO Evolocumab (Repatha Sureclick) 140 MG/ML PEN.INJCTR 1 Dose INJECTABLE EVERY 2 WEEKS Start taking the following new medications: Amoxicillin/Potassium Clav (Augmentin 875-125 Tablet) 875 MG-125 MG TABLET 1 Tablet ORAL TWICE DAILY Qty = 14 No Refills Comments: NOT GIVEN IN HOSPITAL Copies To: Cathi Moreland DO
== END 2017-07-26 14:18 | DRG 392 ==
LOC: ERH 17:25 → 2NB 21:26 → ERHI 21:26 → ENRESERV 21:40 → ENTRNSPT 22:18 → 2NB 22:42 → CMPTRNSPT 07-24 07:45 → ENPENDDIS 07-26 12:09 → 2NB 07-26 14:18
PROVIDERS: Physician Assistant; Physician Assistant Surgical
DX: K57.20 Diverticulitis of large intestine with perforation and abscess without bleeding (principal); E78.5 Hyperlipidemia, unspecified; I10 Essential (primary) hypertension; Z95.2 Presence of prosthetic heart valve; I25.10 Atherosclerotic heart disease of native coronary artery without angina pectoris; Z95.3 Presence of xenogenic heart valve; Z98.61 Coronary angioplasty status
CPT/HCPCS: 2NBSP; 36592; 74177; 81001; 82436; 87040; J0131; J1644; J1885; J2405; J3490; J7042